=== PATIENT | female | born 1990 | race American Indian/Alaskan Native ===

== ENCOUNTER 2019-08-03 20:57 | Inpatient (IN) | payer BC ==
[2019-08-03] MEDS ORDERED: ePHEDrine SULFATE 50 MG/1 ML INJ IV PRN (22:03)
[2019-08-03] MEDS ORDERED: TERBUTALINE 1 MG/1 ML INJ SUB-Q PRN (22:03)
[2019-08-03] MEDS ORDERED: TERBUTALINE 1 MG/1 ML INJ IVP PRN (22:03)
[2019-08-03] MEDS ORDERED: MINERAL OIL 30 ML ORAL LIQD PO PRN (22:03)
[2019-08-03] MEDS ORDERED: LIDOCAINE (2%) 20 MG/1 ML VIAL 20 ML MDV INFILTRATI ONE (22:03)
[2019-08-03 22:20] LABS: Hematocrit 36.5 % (30.3-42.9); Hemoglobin 12.3 gm/dl (10.1-14.3); Mean Corpuscular HGB Conc 34 % (30-34); Mean Corpuscular Volume 85 fl (79-97); Platelet Count 108 K/mm3 (140-440); Red Blood Count 4.31 M/mm3 (3.65-5.03)
[2019-08-03] MEDS ORDERED: OXYTOCIN 20 UNIT/1000ML DRIP 20 UNITS/1,000 ML BAG IV SCH (23:00)
[2019-08-03] MEDS ORDERED: OXYTOCIN DRIP 30 UNITS/500 ML BAG IV SCH (23:00)
[2019-08-03] MEDS ORDERED: INSULIN NPH, HUMAN 100 UNIT/1 ML SUB-Q ONE (23:00)
[2019-08-03] MEDS: LACTATED RINGERS 1,000 ML IV SCH (23:29)
[2019-08-04] MEDS: OXYTOCIN DRIP 30 UNITS/500 ML BAG IV SCH ×7 (04:02→13:07)
[2019-08-04] MEDS: LACTATED RINGERS 1,000 ML IV SCH ×5 (05:31→22:30)
--- NOTE | 2019-08-04 08:16 | History and Physical Report ---
History of Present Illness Date of examination: 08/04/19 Date of admission: 08/03/19 20:57 Chief complaint: IOL for Diabetes History of present illness: This is a 28 yo at 39 weeks here for IOL for insulin dependent diabetes. Patient had a thrombocytopenia seen by [facility]. Patient has type 2 diabetes. PUI?: No Past History Past Medical History: diabetes Past Surgical History: no surgical history Family/Genetic History: cancer (ovarian and breast) Social history: . denies: smoking, alcohol abuse, prescription drug abuse - Obstetrical History Expected Date of Delivery: 08/10/19 Actual Gestation: 39 Week(s) 1 Day(s) : 1 Para: 0 Hx # Term Pregnancies: 0 Number of Pregnancies: 0 Spontaneous Abortions: 0 Induced : 0 Number of Living Children: 0 Medications and Allergies Allergies Allergy/AdvReac Type Severity Reaction Status Date / Time No Known Allergies Allergy Verified 08/03/19 21:43 Home Medications Medication Instructions Recorded Confirmed Last Taken Type Aspirin [Aspirin BABY CHEW TAB] 81 mg PO 08/03/19 Unknown History Insulin NPH Human Isophane 08/03/19 Unknown History [Novolin N] Insulin Regular, Human [Novolin R] 08/03/19 Unknown History Vit-Fe Fumar-FA [ 1 tab 08/03/19 08/03/19 09:00 History Vitamin] Valacyclovir HCl [Valacyclovir] 500 mg BID 08/03/19 08/03/19 Unknown History Active Meds: Active Medications Ephedrine Sulfate (Ephedrine Sulfate) 10 mg IV Q2M PRN PRN Reason: Hypotension Oxytocin/Sodium Chloride (Pitocin/Ns 20 Unit/1000ml Drip) 20 units in 1,000 mls @ 125 mls/hr IV DIRECT JUVENAL Oxytocin/Sodium Chloride (Pitocin/Ns 30 Unit/500ml) 30 units in 500 mls @ 2 mls/hr IV TITR JUVENAL; Protocol Last Titration: 08/04/19 07:47 Dose: 10 mls/hr, 10 mls/hr Documented by: Lactated Ringer's (Lactated Ringers) 1,000 mls @ 125 mls/hr IV DIRECT JUVENAL Last Admin: 08/04/19 05:31 Dose: 125 mls/hr Documented by: Mineral Oil (Mineral Oil) 30 ml PO QHS PRN PRN Reason: Constipation Terbutaline Sulfate (Brethine) 0.25 mg SUB-Q ONCE PRN PRN Reason: Hyperstimulation/Hypertonicity Terbutaline Sulfate (Brethine) 0.25 mg IVP ONCE PRN PRN Reason: Hyperstimulation/Hypertonicity Review of Systems All systems: negative - Vital Signs Vital signs: Vital Signs Temp Pulse Resp BP 98.3 F 85 18 113/69 08/03/19 21:08 08/03/19 21:08 08/03/19 21:08 08/03/19 21:08 Temp Pulse Resp BP Pulse Ox 98.4 F 77 18 118/55 08/04/19 07:34 08/04/19 07:54 08/03/19 21:08 08/04/19 07:54 - Physical Exam Breasts: Positive: normal Cardiovascular: Regular rate, Normal S1 Lungs: Positive: Clear to auscultation, Normal air movement Abdomen: Positive: normal appearance, soft, normal bowel sounds. Negative: distention, tenderness, guarding Genitourinary (Female): Positive: normal external genitalia, normal perenium Vagina: Positive: normal moisture Uterus: Positive: normal size, normal contour Anus/Rectum: Positive: normal perianal skin Extremities: Positive: normal Deep Tendon Reflex Grade: Normal +2 - Obstetrical FHR: category 1 Cervical Dilatation: 3 Results Result Diagrams: 08/03/19 21:30 Abnormal lab results 08/03/19 08/03/19 Range/Units 21:30 22:03 Plt Count 108 L (140-440) K/mm3 POC Glucose 122 H (70-105) All other labs normal. 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
[2019-08-04] MEDS: valACYclovir 500 MG TAB PO SCH (14:48)
[2019-08-04] MEDS ORDERED: fentaNYL-BUPIV 2 MCG/ML-0.125% 200 MCG/100 ML BAG EPIDURAL ONE (17:31)
[2019-08-04] MEDS ORDERED: NALOXONE 2 MG/2 ML INJ IV PRN (17:38)
[2019-08-04] MEDS ORDERED: ePHEDrine SULFATE 50 MG/1 ML INJ IV PRN (17:38)
--- NOTE | 2019-08-04 17:38 | Anesthesia Consultation ---
Anesthesia Consult and Med Hx Date of service: 08/04/19 - Airway Anesthetic Teeth Evaluation: Good ROM Head & Neck: Adequate Mental/Hyoid Distance: Adequate Mallampati Class: Class II Intubation Access Assessment: Probably Good - Pulmonary Exam CTA: Yes - Cardiac Exam Cardiac Exam: RRR - Pre-Operative Health Status ASA Pre-Surgery Classification: ASA3 Proposed Anesthetic Plan: Epidural - Pulmonary Hx Asthma: No COPD: No Hx Pneumonia: No - Cardiovascular System Hx Hypertension: No - Central Nervous System Hx Seizures: No Hx Psychiatric Problems: No - Endocrine Hx Renal Disease: No Hx End Stage Renal Disease: No Hx Non-Insulin Dependent Diabetes: Yes Hx Hypothyroidism: No Hx Hyperthyroidism: No - Hematic Hx Anemia: No Hx Sickle Cell Disease: No - Other Systems Hx Alcohol Use: No - Additional Comments Anesthesia Medical History Comments: thrombocytopenia
[2019-08-04] MEDS ORDERED: fentaNYL-BUPIV 2 MCG/ML-0.125% 200 MCG/100 ML BAG EPIDURAL SCH (18:00)
[2019-08-04] MEDS ORDERED: LIDOCAINE (2%) 20 MG/1 ML VIAL 20 ML MDV INFILTRATI ONE (18:32)
--- NOTE | 2019-08-04 19:09 | Event Note ---
Date: 08/04/19 Patient was s/p epidural with increasing in pitocin. SVE /-3. nst cat 1 continue with IOL
[2019-08-04] MEDS ORDERED: METOCLOPRAMIDE 10 MG/2 ML INJ ONE (21:13)
[2019-08-04] MEDS ORDERED: FAMOTIDINE 20 MG/2 ML INJ IV ONE (21:13)
[2019-08-04] MEDS ORDERED: BICITRA ORAL LIQD 30ML ONE (21:13)
[2019-08-04] MEDS ORDERED: BICITRA ORAL LIQD 30ML PO ONE (22:30)
[2019-08-04] MEDS ORDERED: METOCLOPRAMIDE 10 MG/2 ML INJ IV ONE (22:30)
[2019-08-05] MEDS ORDERED: ceFAZolin/Water 2 GM/20 ML 2 GM/20 ML SYRINGE IV ONE (00:19)
[2019-08-05] MEDS ORDERED: D5W/0.45% NACL 1,000 ML IV SCH (00:23)
--- NOTE | 2019-08-05 00:31 | Event Note ---
Date: 08/05/19 Patient was evaluated after several hours of pitocin to max of 28. Patient was noted to be 9.5/90/-3. Despite IUPC very little change. vulvar swelling and cervical swelling. After discussing ption with atient and it was decided to proceed with primary . Patietn and and agree after r/b/a of procedure which include bleeding, infection, damage to pelvic and non pelvic organs.
[2019-08-05] MEDS ORDERED: SODIUM CHLORIDE 0.9% IRR 1,500 ML BOTTLE IR ONE (01:00)
[2019-08-05] MEDS ORDERED: WATER FOR IRRIG STERILE 1,500 ML BOTTLE IR ONE (01:00)
[2019-08-05] MEDS ORDERED: KETOROLAC 30 MG/1 ML INJ ONE (01:02)
[2019-08-05] MEDS ORDERED: OXYTOCIN 10 UNIT/1 ML INJ ONE (01:02)
[2019-08-05] MEDS ORDERED: SODIUM BICARB 8.4% 50 MEQ/50 ML VIAL IV ONE (01:02)
[2019-08-05] MEDS ORDERED: LIDOCAINE 2%/EPINEPHRINE 1:200,000 VIAL (20 ML) INFILTRATI ONE (01:02)
[2019-08-05] MEDS ORDERED: dexAMETHasone 20 MG/5 ML VIAL ONE (01:29)
[2019-08-05] MEDS ORDERED: BUPIVACAINE/PF (0.5%) 5 MG/1 ML 30 ML VIAL INFILTRATI ONE (01:29)
[2019-08-05] MEDS ORDERED: KETOROLAC 30 MG/1 ML INJ IV PRN (01:39)
[2019-08-05] MEDS ORDERED: ACETAMINOPHEN 325 MG TAB PO PRN (01:39)
[2019-08-05] MEDS ORDERED: ONDANSETRON 4 MG/2 ML INJ IV PRN (01:39)
[2019-08-05] MEDS ORDERED: PROMETHAZINE 25 MG RECT SUPP PR PRN (01:39)
[2019-08-05] MEDS ORDERED: LANOLIN/ZINC/DIMETHICONE (LANSINOH) 7 GM TP PRN (01:39)
[2019-08-05] MEDS ORDERED: diphenhydrAMINE 25 MG CAP PO PRN (01:39)
[2019-08-05] MEDS ORDERED: PROMETHAZINE 25 MG TAB PO PRN (01:39)
[2019-08-05] MEDS ORDERED: WITCH HAZEL/ GLYCERIN PAD TP PRN (01:39)
[2019-08-05] MEDS ORDERED: MAGNESIUM HYDROXIDE (MOM) ORAL LIQD UDC PO PRN (01:39)
--- NOTE | 2019-08-05 01:43 | Procedure Note ---
OB Delivery Note - Delivery Date of Delivery: 08/05/19 Surgeon: MAGGIE RAMOS Estimated blood loss: other (800cc) - Section Preop diagnosis: arrest of descent Postop diagnosis: same section procedure: section Disposition: PACU Complications: none Narrative: see op note - Infant A at 1 minute: 8 at 5 minutes: 9 Gender: Male (9 pounds 12.6 oz)
--- NOTE | 2019-08-05 01:44 | Operative Report ---
Operative Report Operative Report: Operative Report: Date of surgery: July 16, 2019 Preoperative diagnosis: at 39+6 weeks; morbid obesity; failed induction Postoperative diagnosis: Same as above Procedure: Primary low transverse delivery Surgeon: Nicole Restrepo MD Anesthesia: Regional anesthesia Estimated blood loss:800 mL IV fluids 800 mL Urine output 400 mL Findings: Liveborn male with Apgars of 8 and 9 weight 9 pounds 12.6 ounces Indications: 28-year-old -0-0-0 at 39 weeks who was admitted for induction of labor secondary to IDDM. Patient proceeded to 9cm and no descent Procedure: The patient was taken to the operating room and given regional anesthesia without complication. She was prepped and draped in a normal sterile fashion. A Pfannenstiel skin incision was made down to layer the fascia which was nicked in the midline extended laterally with the Bovie cautery. The superior aspect of the rectus fascia was grasped with Raeford clamps x2 and the rectus muscles off sharply. This was done in inferior fashion as well. The rectus muscle midline and peritoneum entered bluntly. An Bryce retractor was then inserted. A bladder blade was placed. The vesicouterine peritoneum was then entered sharply with Metzenbaum s cissors. A bladder flap was created digitally. A low transverse uterine incision was then made and extended digitally. There was clear fluid upon entry into the uterine cavity. The head was delivered through the incision with fundal pressure. The cord was clamped and cut x2 and was passed off to pediatrics. The placenta was then manually extracted. The uterus was then exteriorized and cleared of clots and debris. The uterine incision was then closed in a running locked fashion with 0 Vicryl additional imbricating stitch was applied for 2 layer closure. The serosa was then reapproximated with 3-0 Vicryl. The posterior cul-de-sac was then copiously irrigated. The uterus was replaced back into the abdomen and pelvis were the gutters were then irrigated. The Bryce retractor was then removed. The peritoneum was then reapproximated with 3-0 Vicryl incorporating the rectus muscle. The fascia was then closed with 0 PDS in a running fashion. The skin was then reapproximated with 3-0 Monocryl on a Rick needle subcuticular fashion. Steri-Strips to place across the incision and a Crede procedures performed at the end of the surgery. A pressure dressing was applied to the incision. The surgery productive of a liveborn male with Apgars of 8 and 9 weight 8 pounds 3 ounces. The patient was taken to the recovery room in stable condition. All sponge laps and needle counts correct x2.
[2019-08-05] MEDS ORDERED: OXYTOCIN 20 UNIT/1000ML DRIP 20 UNITS/1,000 ML BAG IV SCH (02:00)
--- NOTE | 2019-08-05 02:09 | Post Anesthesia Evaluation ---
- Post Anesthesia Evaluation Patient Participated: Yes Airway Patent: Yes Stable Respiratory Function: Yes Nausea/Vomiting: No Temp > 96.8F: Yes Pain Manageable: Yes Adequeate Hydration: Yes Anesthesia Complications: No Block Receding Appropriately: Yes
[2019-08-05 03:17] LABS: Hematocrit 33.6 % (30.3-42.9); Hemoglobin 11.4 gm/dl (10.1-14.3); Mean Corpuscular HGB Conc 34 % (30-34); Mean Corpuscular Volume 86 fl (79-97); Red Blood Count 3.92 M/mm3 (3.65-5.03); Red Cell Distribution Width 14.6 % (13.2-15.2)
[2019-08-05 03:25] LABS: Platelet Count 90 K/mm3 (140-440)
[2019-08-05] MEDS ORDERED: LACTATED RINGERS 1,000 ML IV SCH (04:15)
--- NOTE | 2019-08-05 09:16 | Operative Report ---
Operative Report Operative Report: Operative Report: Date of surgery: August 05, 2019 Preoperative diagnosis: at 39 weeks; Postoperative diagnosis: Same as above Procedure: Primary low transverse delivery Surgeon: Nicole Restrepo MD Anesthesia: Regional anesthesia Estimated blood loss:500 mL IV fluids 700 mL Urine output 50 mL Findings: Liveborn female infant with Apgars of 8 and 9 weight 7 pounds 13 ounces Indications: 28-year-old at 39 weeks who was admitted for repeat cesaran. Scheduled Procedure: The patient was taken to the operating room and given regional anesthesia without complication. She was prepped and draped in a normal sterile fashion. A Pfannenstiel skin incision was made down to layer the fascia which was nicked in the midline extended laterally with the Bovie cautery. The superior aspect of the rectus fascia was grasped with [place] clamps x2 and the rectus muscles off sharply. This was done in inferior fashion as well. The rectus muscle midline and peritoneum entered bluntly. An Bryce retractor was then inserted. A bladder blade was placed. The vesicouterine peritoneum was then entered sharply with Metzenbaum scissors. A bladder flap was created digitally. A low transverse uterine incision was then made and extended digitally. There was clear fluid upon entry into the uterine cavity. The head was delivered through the incision with fundal pressure. The cord was clamped and cut x2 and was passed off to pediatrics. The placenta was then manually extracted. The uterus was then exteriorized and cleared of clots and debris. The uterine incision was then closed in a running locked fashion with 0 Vicryl additional imbricating stitch was applied for 2 layer closure. The serosa was then reapproximated with 3-0 Vicryl. The posterior cul-de-sac was then copiously irrigated. The uterus was replaced back into the abdomen and pelvis were the gutters were then irrigated. The Bryce retractor was then removed. The peritoneum was then reapproximated with 3-0 Vicryl incorporating the rectus muscle. The fascia was then closed with 0 PDS in a running fashion. The skin was then reapproximated with 3-0 Monocryl on a Rick needle subcuticular fashion. Steri-Strips to place across the incision and a Crede procedures performed at the end of the surgery. A pressure dressing was applied to the incision. The surgery productive of a liveborn male with Apgars of 8 and 9 weight 7pounds 13 ounces. The patient was taken to the recovery room in stable condition. All sponge laps and needle counts correct x2.
--- NOTE | 2019-08-05 09:18 | Operative Report ---
Operative Report Operative Report: Operative Report: Date of surgery: AUGUST 05, 2019 Preoperative diagnosis: at 39+6 weeks; morbid obesity; failed induction Postoperative diagnosis: Same as above Procedure: Primary low transverse delivery Surgeon: Nicole Restrepo MD Anesthesia: Regional anesthesia Estimated blood loss:800 mL IV fluids 800 mL Urine output 400 mL Findings: Liveborn male with Apgars of 8 and 9 weight 9 pounds 12.6 ounces Indications: 28-year-old -0-0-0 at 39 weeks who was admitted for induction of labor secondary to IDDM. Patient proceeded to 9cm and no descent Procedure: The patient was taken to the operating room and given regional anesthesia without complication. She was prepped and draped in a normal sterile fashion. A Pfannenstiel skin incision was made down to layer the fascia which was nicked in the midline extended laterally with the Bovie cautery. The superior aspect of the rectus fascia was grasped with Ringold clamps x2 and the rectus muscles off sharply. This was done in inferior fashion as well. The rectus muscle midline and peritoneum entered bluntly. An Bryce retractor was then inserted. A bladder blade was placed. The vesicouterine peritoneum was then entered sharply with Metzenbaum scissors. A bladder flap was created digitally. A low transverse uterine incision was then made and extended digitally. There was clear fluid upon entry into the uterine cavity. The head was delivered through the incision with fundal pressure. The cord was clamped and cut x2 and infant was passed off to pediatrics. The placenta was then manually extracted. The uterus was then exteriorized and cleared of clots and debris. The uterine incision was then closed in a running locked fashion with 0 Vicryl additional imbricating stitch was applied for 2 layer closure. The serosa was then reapproximated with 3-0 Vicryl. The posterior cul-de-sac was then copiously irrigated. The uterus was replaced back into the abdomen and pelvis were the gutters were then irrigated. The Bryce retractor was then removed. The peritoneum was then reapproximated with 3-0 Vicryl incorporating the rectus muscle. The fascia was then closed with 0 PDS in a running fashion. The skin was then reapproximated with 3-0 Monocryl on a Rick needle subcuticular fashion. Steri-Strips to place across the incision and a Crede procedures performed at the end of the surgery. A pressure dressing was applied to the incision. The surgery productive of a liveborn male with Apgars of 8 and 9 weight 8 pounds 3 ounces. The patient was taken to the recovery room in stable condition. All sponge laps and needle counts correct x2.
[2019-08-05] MEDS: DOCUSATE SODIUM 100 MG CAP PO SCH ×2 (09:31→22:30)
[2019-08-05] MEDS: PRENATAL VIT27-FE FUMARATE-FOLIC ACID VIT TAB PO SCH (09:31)
[2019-08-05] MEDS: valACYclovir 500 MG TAB PO SCH ×2 (11:31→22:26)
[2019-08-05] MEDS: IBUPROFEN 600 MG TAB PO SCH (12:00)
[2019-08-05] MEDS: oxyCODONE /ACETAMINOPHEN 5-325MG TAB PO PRN ×2 (14:00→20:34)
[2019-08-05] MEDS: SENNOSIDES/DOCUSATE SODIUM 8.6/50 MG TAB PO SCH (16:42)
[2019-08-05] MEDS: INSULIN GLARGINE 100 UNITS/ML SUB-Q SCH (22:24)
[2019-08-05] MEDS ORDERED: FAMOTIDINE 20 MG/2 ML INJ IV ONE (22:30)
[2019-08-06] MEDS: IBUPROFEN 600 MG TAB PO SCH ×3 (00:29→12:18)
[2019-08-06] MEDS: INSULIN LISPRO 100 UNIT/ML SUB-Q SCH ×5 (04:15→22:00)
[2019-08-06] MEDS: HYDROcodone/ACETAMINOPHEN 5-325 MG TAB PO PRN ×2 (04:16→21:15)
[2019-08-06] MEDS ORDERED: MEASLES, MUMPS & RUBELLA 12,500 UNIT/0.5 ML VACCINE SUB-Q ONE (06:00)
[2019-08-06] MEDS ORDERED: TETANUS,DIPH,PERTUSS(ACELL) VACCINE 0.5 ML SYRINGE IM ONE (06:00)
[2019-08-06] MEDS: valACYclovir 500 MG TAB PO SCH ×2 (09:33→21:15)
[2019-08-06] MEDS: DOCUSATE SODIUM 100 MG CAP PO SCH ×2 (09:33→21:16)
[2019-08-06] MEDS: PRENATAL VIT27-FE FUMARATE-FOLIC ACID VIT TAB PO SCH (09:33)
[2019-08-06] MEDS: oxyCODONE /ACETAMINOPHEN 5-325MG TAB PO PRN (10:29)
--- NOTE | 2019-08-06 12:55 | Progress Note ---
Assessment and Plan - Patient Problems (1) delivery delivered Current Visit: Yes Status: Acute Plan to address problem: Patient doing well Routine postoperative care Subjective - Subjective Date of service: 08/06/19 Interval history: The patient is without any significant complaints. She reports being able to void and is tolerating a regular diet. Patient reports: appetite normal, voiding normally, pain well controlled : doing well Objective - Vital Signs Latest vital signs: Vital Signs Temp Pulse Resp BP Pulse Ox 08/06/19 07:47 98.1 F 90 20 110/63 99 08/05/19 23:55 98.4 F 82 20 111/66 100 08/05/19 20:34 18 08/05/19 15:43 98.3 F 71 20 109/69 100 Intake and Output 08/05/19 08/06/19 08/06/19 22:59 06:59 14:59 Intake Total 600 480 120 Output Total 200 Balance 400 480 120 Intake: Oral 600 480 120 Output: Urine 200 Void 200 Other: Total, Intake Amount 240 240 120 Total, Output Amount 200 # Voids Void 1 1 1 - Exam Abdomen: Present: normal appearance Incision: Present: dressed - Labs Labs: Abnormal lab results 08/05/19 08/05/19 08/06/19 Range/Units 15:54 22:17 12:29 POC Glucose 275 H 118 H 154 H (70-105)
[2019-08-06] MEDS: INSULIN GLARGINE 100 UNITS/ML SUB-Q SCH (22:21)
[2019-08-07] MEDS: IBUPROFEN 600 MG TAB PO SCH ×3 (01:41→22:07)
[2019-08-07] MEDS ORDERED: MEASLES, MUMPS & RUBELLA 12,500 UNIT/0.5 ML VACCINE SUB-Q ONE (06:00)
[2019-08-07] MEDS: INSULIN LISPRO 100 UNIT/ML SUB-Q SCH ×4 (08:20→22:28)
[2019-08-07] MEDS: SENNOSIDES/DOCUSATE SODIUM 8.6/50 MG TAB PO SCH (10:07)
[2019-08-07] MEDS: PRENATAL VIT27-FE FUMARATE-FOLIC ACID VIT TAB PO SCH (10:07)
[2019-08-07] MEDS: DOCUSATE SODIUM 100 MG CAP PO SCH ×2 (10:07→22:06)
[2019-08-07] MEDS: valACYclovir 500 MG TAB PO SCH ×2 (10:07→22:06)
[2019-08-07] MEDS: oxyCODONE /ACETAMINOPHEN 5-325MG TAB PO PRN ×2 (10:08→17:59)
--- NOTE | 2019-08-07 12:35 | Progress Note ---
Assessment and Plan - Patient Problems (1) delivery delivered Current Visit: Yes Status: Acute Plan to address problem: Patient doing well Routine postoperative care Subjective - Subjective Date of service: 08/07/19 Interval history: The patient is without any significant complaints. Her currently has an elevated bilirubin level and is receiving phototherapy. Patient reports: appetite normal, voiding normally, pain well controlled : doing well Objective - Vital Signs Latest vital signs: Vital Signs Temp Pulse Resp BP Pulse Ox 08/07/19 07:48 98.0 F 85 20 108/61 100 08/07/19 01:25 98.1 F 82 20 102/57 96 08/06/19 16:33 98.1 F 74 20 114/69 100 Intake and Output 08/06/19 08/07/19 08/07/19 22:59 06:59 14:59 Intake Total 480 480 240 Balance 480 480 240 Intake: Oral 480 480 240 Other: Total, Intake Amount 240 240 240 # Voids Void 1 1 1 - Exam Abdomen: Present: normal appearance, soft - Labs Labs: Abnormal lab results 08/06/19 08/06/19 08/06/19 Range/Units 12:29 17:20 22:00 POC Glucose 154 H 130 H 147 H (70-105)
[2019-08-07] MEDS: INSULIN GLARGINE 100 UNITS/ML SUB-Q SCH (22:25)
[2019-08-08] MEDS: IBUPROFEN 600 MG TAB PO SCH ×3 (05:22→17:15)
--- NOTE | 2019-08-08 07:55 | Progress Note ---
Assessment and Plan A: POD#3 s/p primary section, Pregestational Diabetes P: Routine postoperative care. Consider discharge later today vs tomorrow Subjective - Subjective Date of service: 08/08/19 Principal diagnosis: s/p primary section Interval history: Pt reports minimal flatus. Otherwise feeling well. Patient reports: appetite normal, voiding normally, pain well controlled, ambulating normally, no flatus, no bowel movement : doing well Objective - Vital Signs Latest vital signs: Vital Signs Temp Pulse Resp BP Pulse Ox 08/08/19 00:40 98.3 F 68 16 106/78 98 08/07/19 16:27 98.0 F 85 18 109/68 100 Intake and Output 08/07/19 08/08/19 08/08/19 22:59 06:59 14:59 Intake Total 480 600 Balance 480 600 Intake: Oral 240 Intake, Free Water 240 600 Other: Total, Intake Amount 240 # Voids Void 1 1 - Exam Breasts: Present: deferred Abdomen: Present: soft, distention (moderate ) Uterus: Present: fundal height below umbilicus Incision: Present: intact (steristrips ) - Labs Labs: Abnormal lab results 08/07/19 08/07/19 Range/Units 17:10 22:23 POC Glucose 222 H 155 H (70-105)
[2019-08-08] MEDS: valACYclovir 500 MG TAB PO SCH ×2 (10:03→22:13)
[2019-08-08] MEDS: SENNOSIDES/DOCUSATE SODIUM 8.6/50 MG TAB PO SCH (10:04)
[2019-08-08] MEDS: DOCUSATE SODIUM 100 MG CAP PO SCH ×2 (10:04→22:12)
[2019-08-08] MEDS: MAGNESIUM HYDROXIDE (MOM) ORAL LIQD UDC PO SCH ×3 (10:05→20:51)
[2019-08-08] MEDS: INSULIN LISPRO 100 UNIT/ML SUB-Q SCH ×5 (10:05→22:02)
[2019-08-08] MEDS: PRENATAL VIT27-FE FUMARATE-FOLIC ACID VIT TAB PO SCH (10:07)
[2019-08-08] MEDS: INSULIN GLARGINE 100 UNITS/ML SUB-Q SCH (22:03)
[2019-08-08] MEDS: oxyCODONE /ACETAMINOPHEN 5-325MG TAB PO PRN (23:20)
[2019-08-09] MEDS: IBUPROFEN 600 MG TAB PO SCH (02:38)
[2019-08-09] MEDS: MAGNESIUM HYDROXIDE (MOM) ORAL LIQD UDC PO SCH (02:39)
[2019-08-09] MEDS: SENNOSIDES/DOCUSATE SODIUM 8.6/50 MG TAB PO SCH (02:39)
[2019-08-09] MEDS: oxyCODONE /ACETAMINOPHEN 5-325MG TAB PO PRN (05:38)
--- NOTE | 2019-08-09 08:28 | Progress Note ---
Assessment and Plan - Patient Problems (1) delivery delivered Current Visit: Yes Status: Acute Plan to address problem: Patient doing well Discharge home Subjective - Subjective Date of service: 08/09/19 Principal diagnosis: s/p primary section Interval history: The patient is without any significant complaints. Her has completed his phototherapy. The patient is tolerating a regular diet and her pain is well controlled. Patient reports: appetite normal, voiding normally, pain well controlled : doing well Objective - Vital Signs Latest vital signs: Vital Signs Temp Pulse Resp BP Pulse Ox 08/09/19 05:38 20 08/09/19 00:40 98.3 F 88 20 118/73 98 08/08/19 23:20 18 08/08/19 16:50 98.5 F 101 H 18 107/74 96 Intake and Output 08/08/19 08/09/19 08/09/19 22:59 06:59 14:59 Intake Total 240 240 Balance 240 240 Intake: Oral 240 240 Other: Total, Intake Amount 240 240 # Voids Indwelling Catheter 1 Void 1 1 - Exam Abdomen: Present: normal appearance Incision: Present: normal - Labs Labs: Abnormal lab results 08/08/19 08/09/19 Range/Units 12:28 08:13 POC Glucose 163 H 54 L (70-105)
--- NOTE | 2019-08-09 08:29 | Discharge Summary ---
Providers - Providers Date of Admission: 08/03/19 20:57 Date of discharge: 08/09/19 Attending physician: RADHA RUSSELL Primary care physician: RADHA RUSSELL Hospitalization Reason for admission: section Delivery: Procedure: section, repeat low transverse Discharge diagnosis: IUP at term delivered Hospital course: Patient admitted for scheduled repeat delivery. Please see operative note for details of surgery. Postoperative course was uneventful. Condition at discharge: Good Disposition: DC-01 TO HOME OR SELFCARE - Discharge Diagnoses (1) delivery delivered Status: Acute Plan - Discharge Medications Prescriptions: Ibuprofen [Motrin] 800 mg PO Q8HR PRN #60 tablet PRN Reason: Pain, Mild (1-3) oxyCODONE /ACETAMINOPHEN [Percocet 5/325] 1 tab PO Q6HR PRN #30 tablet PRN Reason: Pain - Provider Discharge Summary Activity: no sex for 6 weeks, no heavy lifting 4 weeks, no strenuous exercise Diet: routine Instructions: routine Additional instructions: [] Smoking cessation referral if applicable(refer to patient education folder for contact #) [] Refer to [facility] Booklet Call your doctor immediately for: * Fever > 100.5 * Heavy vaginal bleeding ( >1 pad per hour) * Severe persistent headache * Shortness of breath * Reddened, hot, painful area to leg or breast * Drainage or odor from incision. * Keep incision clean and dry at all times and follow doctor's instructions regarding bathing/showering Schedule postoperative visit in 2 weeks - Follow up plan Forms: [facility] Discharge Summary
[2019-08-09 08:30] VITALS: BP 114/70
== END 2019-08-09 10:20 | disposition home or self-care (01) | DRG 787 ==
LOC: LD 20:57 → OB 08-05 05:02
PROVIDERS: ADMIT Obstetrics & Gynecology; ATTEND Obstetrics & Gynecology
PROC: 10D00Z1 Extraction of Products of Conception, Low, Open Approach (ICD-10-PCS; principal; 2019-08-05)
PROC: 3E0234Z Introduction of Serum, Toxoid and Vaccine into Muscle, Percutaneous Approach (ICD-10-PCS; 2019-08-06)
PROC: 3E0134Z Introduction of Serum, Toxoid and Vaccine into Subcutaneous Tissue, Percutaneous Approach (ICD-10-PCS; 2019-08-06)
DX: O99.214 Obesity complicating childbirth (principal); O99.12 Other diseases of the blood and blood-forming organs and certain disorders involving the immune mechanism complicating childbirth; O24.12 Pre-existing type 2 diabetes mellitus, in childbirth; O61.9 Failed induction of labor, unspecified; O62.1 Secondary uterine inertia; D69.6 Thrombocytopenia, unspecified; E66.01 Morbid (severe) obesity due to excess calories; Z3A.39 39 weeks gestation of pregnancy; E11.9 Type 2 diabetes mellitus without complications; Z37.0 Single live birth; Z23 Encounter for immunization; Z80.3 Family history of malignant neoplasm of breast; Z80.41 Family history of malignant neoplasm of ovary
CPT/HCPCS: 36415; 82962; 85014; 85018; 85027; 86592; 86850; 86900; 86901; 88307; G0378; J0690; J1100; J1815; J1885; J2590; J2765; J3105; J7120

== ENCOUNTER 2021-11-12 17:34 | Emergency (ER) | payer BC ==
[2021-11-12 17:53] VITALS: BP 140/88
== END 2021-11-13 08:30 | disposition left against medical advice (07) ==
LOC: ED 17:34
DX: R53.1 Weakness (principal); Z53.21 Procedure and treatment not carried out due to patient leaving prior to being seen by health care provider